=== PATIENT | male | born 1975 | race Two or more races ===

== ENCOUNTER 2019-07-26 12:28 | Emergency (ER) | payer BC ==
[~2019-07-26] VITALS: Ht 172.7 cm; Wt 75.7 kg
[2019-07-26 13:14] VITALS: BP 124/82
[2019-07-26 14:15] LABS: Urine WBC None Seen /hpf (0 - 3)
[2019-07-26 14:29] LABS: Urine Bacteria NONE SEEN /hpf (None Seen); Urine Blood Negative /uL (Negative); Urine Mucus FEW (None Seen); Urine Specific Gravity 1.022 (1.001-1.035)
== END 2019-07-26 15:24 | disposition home or self-care (01) ==
LOC: ER 12:28
DX: A63.0 Anogenital (venereal) warts (principal)
CPT/HCPCS: 81001